=== PATIENT | male | born 1945 | race Caucasian/White ===

== ENCOUNTER 2017-01-12 15:00 | Emergency (ER) | payer OTHER ==
--- NOTE | 2017-01-12 15:24 | ED ORDER SUMMARY ---
..... Patient: BARBARA MACKAY OrderSheet [facility] VisitID: [id number] [address] [place] [address] 71y, M Registration Date/Time: 01/12/2017 ORDER SHEET Weight: 0.4 kg Allergies: GENERAL ORDERS: Chest 1V Urgent (15:18 01/12/2017 Ag Quevedo) Geriatric Social Work Professor (Continuous) (STEMI) (15:01/12/2017 Ag Quevedo) CBC w Diff Urgent (15:01/12/2017 Ag Quevedo) CMP Urgent (15:01/12/2017 Ag Quevedo) PT with INR Urgent (15:01/12/2017 Ag Quevedo) PTT Urgent (15:01/12/2017 Ag Quevedo) Pulse oximeter (15:01/12/2017 Ag Quevedo) Pacer Pads (15:01/12/2017 Ag Quevedo) Troponin-I Urgent (15:01/12/2017 Ag Quevedo) MEDICATION ORDERS: NitroGLYCERIN SL 0.4 mg (x3 PRN Chest Pain) (15:01/12/2017 Ag Quevedo) (6:51 DBeyer R.N.) IV FLUIDS: Morphine IV 2 mg (HIGH ALERT MEDICATION, NOW) (15:01/12/2017 Ag Quevedo) (6:50 DBeyer R.N.) Atropine IV 1 amp (HIGH ALERT MEDICATION, NOW) (15:01/12/2017 Ag Quevedo) (6:50 DBeyer R.N.) Heparin IV : initial bolus 60 units/kg, then none - for X1 (HIGH ALERT MEDICATION, NOW) (max 5000 u) (15:01/12/2017 Ag Quevedo) (6:50 DBeyer R.N.) IV Saline Lock (:01/12/2017 Ag Quevedo) (6:49 DBeyer R.N.) Heparin IV : initial bolus none -, then 12 units/kg/hr for X1 (HIGH ALERT MEDICATION, NOW) (max 1000 unit/hr) (15:01/12/2017 Ag Quevedo) (6:51 Justin Em) ORDER SHEET NOTES: [Electronically signed by Alcon Benz Dr. (04:56 01/16/2017)] [Electronically signed by Jaime Cohen R.N. (00:36 02/03/2017)] [Electronically locked/signed by Jaime Cohen R.N. (06:51 01/28/2017)]
--- NOTE | 2017-01-12 15:24 | ED NURSING NOTES ---
Clinical Report - Nurses [place] [address] [place] [address] 01/12/2017 15:08 Patient: BARBARA MACKAY TRIAGE Chief Complaint: CHEST PAIN. --00:34 Jaime Cohen R.N. ( vaule of 1 entered for height and weight so that pt chart could be locked). --00:35 Jaime Cohen R.N. Weight: 0.4 kg. Height/Length: 1 inches. BMI: 640. --00:35 Jaime Cohen R.N. Allergies Unknown. --00:35 Jaime Cohen R.N. NURSING PROGRESS NOTES 15:00 01/12/17. ( Pt identified as an STEMI with EKG, pt is alert and oriented, he is pale, diaphoretic RR 25. 1x nitro pt took 325 aspirin at home). --15:17 Jaime Cohen R.N. 15:00 01/12/17. BP: 117/76. HR: 55. RR: 25. O2 saturation: 100%. --15:17 Jaime Cohen R.N. 15:03. ( PT HR decreased to 30, pt given 1 mg atropine HR increased to 55). --15:20 Jaime Cohen R.N. 15:05 01/12/17. BP: 110/76. HR: 59. RR: 22. O2 saturation: 100%. --15:24 Jaime Cohen R.N. 15:05 01/12/17. ( second dose of nitro given MD at bedside). --15:24 Jaime Cohen R.N. ( 1L NS started 2nd IV placed). --15:25 Jaime Cohen R.N. 15:25 01/12/17. BP: 97/55. HR: 55. O2 saturation: 100%. --15:25 Jaime Cohen R.N. ( previous note charted in error time should be 1505). --15:26 Jaime Cohen R.N. 15:00 01/12/17. ( BETO Sandoval first contact with pt). --15:35 Jaime Cohen R.N. 15:07 01/12/17. ( 5000 units heparin admin by RN verbal order from ). --15:27 Jaime Cohen R.NCurly 15:12 01/12/17. BP: 99/61. HR: 56. RR: 22. O2 saturation: 100%. --15:29 Jaime Cohen R.N. 15:12 01/12/17. --15:29 Jaime Cohen R.NCurly 15:13 01/12/2017 Site #1 started via IV in the right with an 18g angiocath, with aseptic technique; one attempt. Blood drawn: rainbow set. Labeled in the presence of the patient. Saline lock flushed with saline. --15:38 Jaime Cohen R.N. 15:14 01/12/2017 Site #2 started via IV in the left hand with an 18g angiocath, with aseptic technique; one attempt. Blood drawn: rainbow set. Saline lock flushed. --15:39 Jaime Cohen R.N. 15:15 01/12/17. ( Heparin drip started at 1800units an hour by RN(hedis coordinator) dose calculated by pharmacist.). --15:31 Jaime Cohen R.N. 15:15 01/12/17. ( 1512 3rd dose of nitro admin). --15:04 Jaime Cohen R.N. 15:23 01/12/17. ( 2mg morphine admin by BETO patrick). --15:32 Jaime Cohen R.N. 15:27 01/12/17. ( Pt left facility via EMS). --15:32 Jaime Cohen R.N. 06:50 01/28/2017 Morphine IVP 2 mg given. via site #1. --06:50 Jaime Cohen R.NCurly 06:50 01/28/2017 Atropine IVP 1 mg given. via site #1. --06:50 Jaime Cohen R.NCurly 06:50 01/28/2017 Heparin IVP via site #1. --06:50 Jaime Cohen R.N. 06:50 01/28/2017 Heparin IVP via site #1. --06:51 Jaime Cohen R.N. 06:51 01/28/2017 Nitroglycerin SL 0.4 mg given. --06:51 Jaime Cohen R.N. DISPOSITION / DISCHARGE 15:27 01/12/17. Departure time: 1527. ( Pt transfered via ems). --15:45 Jaime Cohen R.N. 15:27 01/12/17. BP: 126/57. HR: 55. RR: 25. O2 saturation: 99%. Pain level now 08/30. --15:45 Jaime Cohen R.N. Locked/Released at 02/03/2017 0:36 by Jaime Cohen R.N.
--- NOTE | 2017-01-12 15:24 | ED ORDER SUMMARY ---
..... Patient: BARBARA MACKAY OrderSheet [facility] VisitID: [id number] [address] [place] [address] 71y, M Registration Date/Time: 01/12/2017 ORDER SHEET Weight: 0.4 kg Allergies: GENERAL ORDERS: Chest 1V Urgent (15:18 01/12/2017 Ag Quevedo) Ssis Architect (Continuous) (STEMI) (15:01/12/2017 Ag Quevedo) CBC w Diff Urgent (15:01/12/2017 Ag Quevedo) CMP Urgent (15:01/12/2017 Ag Quevedo) PT with INR Urgent (15:01/12/2017 Ag Quevedo) PTT Urgent (15:01/12/2017 Ag Quevedo) Pulse oximeter (15:01/12/2017 Ag Quevedo) Pacer Pads (15:01/12/2017 Ag Quevedo) Troponin-I Urgent (15:01/12/2017 Ag Quevedo) MEDICATION ORDERS: NitroGLYCERIN SL 0.4 mg (x3 PRN Chest Pain) (15:01/12/2017 Ag Quevedo) (6:51 DBeyer R.N.) IV FLUIDS: Morphine IV 2 mg (HIGH ALERT MEDICATION, NOW) (15:01/12/2017 Ag Quevedo) (6:50 DBeyer R.N.) Atropine IV 1 amp (HIGH ALERT MEDICATION, NOW) (15:01/12/2017 Ag Quevedo) (6:50 DBeyer R.N.) Heparin IV : initial bolus 60 units/kg, then none - for X1 (HIGH ALERT MEDICATION, NOW) (max 5000 u) (15:01/12/2017 Ag Quevedo) (6:50 DBeyer R.N.) IV Saline Lock (:01/12/2017 Ag Quevedo) (6:49 DBeyer R.N.) Heparin IV : initial bolus none -, then 12 units/kg/hr for X1 (HIGH ALERT MEDICATION, NOW) (max 1000 unit/hr) (15:01/12/2017 Ag Quevedo) (6:51 Justin Em) ORDER SHEET NOTES: [Electronically signed by Alcon Benz Dr. (04:56 01/16/2017)] [Electronically signed by Jaime Cohen R.N. (00:36 02/03/2017)] [Electronically locked/signed by Jaime Cohen R.N. (06:51 01/28/2017)]
--- NOTE | 2017-01-12 15:24 | ED NURSING NOTES ---
Clinical Report - Nurses [place] [address] [place] [address] 01/12/2017 15:08 Patient: BARBARA MACKAY TRIAGE Chief Complaint: CHEST PAIN. --00:34 Jaime Cohen R.N. ( vaule of 1 entered for height and weight so that pt chart could be locked). --00:35 Jaime Cohen R.N. Weight: 0.4 kg. Height/Length: 1 inches. BMI: 640. --00:35 Jaime Cohen R.N. Allergies Unknown. --00:35 Jaime Cohen R.N. NURSING PROGRESS NOTES 15:00 01/12/17. ( Pt identified as an STEMI with EKG, pt is alert and oriented, he is pale, diaphoretic RR 25. 1x nitro pt took 325 aspirin at home). --15:17 Jaime Cohen R.N. 15:00 01/12/17. BP: 117/76. HR: 55. RR: 25. O2 saturation: 100%. --15:17 Jaime Cohen R.N. 15:03. ( PT HR decreased to 30, pt given 1 mg atropine HR increased to 55). --15:20 Jaime Cohen R.N. 15:05 01/12/17. BP: 110/76. HR: 59. RR: 22. O2 saturation: 100%. --15:24 Jaime Cohen R.N. 15:05 01/12/17. ( second dose of nitro given MD at bedside). --15:24 Jaime Cohen R.N. ( 1L NS started 2nd IV placed). --15:25 Jaime Cohen R.N. 15:25 01/12/17. BP: 97/55. HR: 55. O2 saturation: 100%. --15:25 Jaime Cohen R.N. ( previous note charted in error time should be 1505). --15:26 Jaime Cohen R.N. 15:00 01/12/17. ( BETO Sandoval first contact with pt). --15:35 Jaime Cohen R.N. 15:07 01/12/17. ( 5000 units heparin admin by RN verbal order from ). --15:27 Jaime Cohen R.NCurly 15:12 01/12/17. BP: 99/61. HR: 56. RR: 22. O2 saturation: 100%. --15:29 Jaime Cohen R.N. 15:12 01/12/17. --15:29 Jaime Cohen R.NCurly 15:13 01/12/2017 Site #1 started via IV in the right with an 18g angiocath, with aseptic technique; one attempt. Blood drawn: rainbow set. Labeled in the presence of the patient. Saline lock flushed with saline. --15:38 Jaime Cohen R.N. 15:14 01/12/2017 Site #2 started via IV in the left hand with an 18g angiocath, with aseptic technique; one attempt. Blood drawn: rainbow set. Saline lock flushed. --15:39 Jaime Cohen R.N. 15:15 01/12/17. ( Heparin drip started at 1800units an hour by RN(dental treatment coordinator) dose calculated by pharmacist.). --15:31 Jaime Cohen R.N. 15:15 01/12/17. ( 1512 3rd dose of nitro admin). --15:04 Jaime Cohen R.N. 15:23 01/12/17. ( 2mg morphine admin by BETO patrick). --15:32 Jaime Cohen R.N. 15:27 01/12/17. ( Pt left facility via EMS). --15:32 Jaime Choen R.N. 06:50 01/28/2017 Morphine IVP 2 mg given. via site #1. --06:50 Jaime Cohen R.NCurly 06:50 01/28/2017 Atropine IVP 1 mg given. via site #1. --06:50 Jaime Cohen R.NCurly 06:50 01/28/2017 Heparin IVP via site #1. --06:50 Jaime Cohen R.N. 06:50 01/28/2017 Heparin IVP via site #1. --06:51 Jaime Cohen R.N. 06:51 01/28/2017 Nitroglycerin SL 0.4 mg given. --06:51 Jaime Cohen R.N. DISPOSITION / DISCHARGE 15:27 01/12/17. Departure time: 1527. ( Pt transfered via ems). --15:45 Jaime Cohen R.N. 15:27 01/12/17. BP: 126/57. HR: 55. RR: 25. O2 saturation: 99%. Pain level now 08/30. --15:45 Jaime Cohen R.N. Locked/Released at 02/03/2017 0:36 by Jaime Cohen R.N.
--- NOTE | 2017-02-03 00:36 | ED CLINICAL REPORT ---
Clinical Report - Physicians/Mid Levels [facility] [address] [place] [address] 01/12/2017 15:08 Patient: BARBARA MACKAY Time Seen: 1505. Arrived- By private vehicle. Historian- patient. HISTORY OF PRESENT ILLNESS Chief Complaint: CHEST PAIN. At its maximum, severity described as severe. Modifying factors- (does not know what makes it better or worse). This started today and is still present and worsening. It was abrupt in onset and has been constant but is not gone now. Onset during shoveling manure. It is described as located in the central chest area. No radiation. No nausea or vomiting. He has had difficulty breathing and has experienced diaphoresis. No additional chest pain. (reports no known cardiac history. states that he has not had any bleeding history except occasional epistaxis. reports no hx of GI bleeding. Takes a daily aspirin 325 mg. Took it today around noon). Similar symptoms previously: None. Recent medical care: Not recently seen/assessed. REVIEW OF SYSTEMS No fever, chills, pedal edema or abdominal pain. He has had skin rash. All systems otherwise negative, except as recorded above. PAST HISTORY See nurses notes. SOCIAL HISTORY Never smoker. No alcohol use or drug use. No recent travel. Is a local resident. FAMILY HISTORY Negative. ADDITIONAL NOTES The nursing notes have been reviewed. PHYSICAL EXAM Vital Signs: 01/12/2017 15:00 BP: 117/76. HR: 55. RR: 25. O2 saturation: 100%. Blood pressure normal. Oxygen saturation normal. Appearance: Alert. Oriented X3. Patient in severe distress. (obviously ill.). Eyes: Pupils equal, round and reactive to light. Eyes normal inspection. ENT: Ears normal. Nose normal. Pharynx normal. Neck: Normal inspection. Neck supple. CVS: Normal heart rate and rhythm. Heart sounds normal. Pulses normal. Respiratory: No respiratory distress. Breath sounds normal. Chest nontender. No rales, rhonchi or wheezes. Abdomen: Soft and nontender. Bowel sounds normal. Back: Normal external inspection. Skin: No rash. Pallor. Cool skin. Diaphoresis. Extremities: Extremities exhibit normal ROM. No calf tenderness. No lower extremity edema. LABS, X-RAYS, AND EKG EKG: Narrow-complex bradycardia. Sinus bradycardia. Normal P waves. Normal DAMON. Normal QRS complex. Normal axis. ST elevation in lead II, III, aVF, V5 and V6- consistent with inferior and lateral infarction. Marked ST depression in lead I, aVR, aVL, V1 and V2- consistent with ischemia. QT not prolonged. QTc not prolonged. STEMI. The study has been interpreted contemporaneously by me. The study has been independently viewed by me. The EKG appears to be a good tracing. Laboratory Tests: CBC w Diff: (SADIQ: 01/12/2017 15:19) ( MsgRcvd 01/12/2017 15:27) Final results Test Result Flag Units (Reference) WHITE BLOOD COUNT 7.3 K/uL (4.5-11.5) RED BLOOD COUNT 5.17 M/uL (4.50-5.90) HEMOGLOBIN 15.7 gm/dL (13.5-17.5) HEMATOCRIT 46.9 % (41.0-53.0) MEAN CELL VOLUME 91 fL (80-100) MEAN CORPUSCULAR HGB 30 pg (26-34) MEAN CORPUSCULAR HGB CONC 34 g/dL (31-37) RED CELL DISTRIBUTION WIDTH 14.5 % (11.6-14.8) PLATELET COUNT 306 K/uL (150-400) NEUTROPHIL % 49.7 L % (50-75) LYMPH % 34.5 % (25-40) MONO % 8.4 % (3-14) EOSINOPHIL % 6.3 H % (0-4) BASOPHIL % 1.1 % (0-2) PT with INR: (SADIQ: 01/12/2017 15:00) ( MsgRcvd 01/12/2017 15:49) Final results Test Result Flag Units (Reference) INR 1.0 (0.8-1.2) Low Intensity Therapy: INR 1.5-2.0 PT range 18.5-23.1Mod.Intensity Therapy: INR 2.0-3.0 PT range 23.1-31.5High Intensity Therapy: INR 2.5-3.5 PT range 27.4-35.5High Intensity Therapy 2: INR 3.0-4.0 PT range 31.5-39.3 APTT 31 SECONDS (24-34) Troponin-I: (SADIQ: 01/12/2017 15:00) ( MsgRcvd 01/12/2017 16:09) Final results Test Result Flag Units (Reference) TROPONIN I <0.05 L ng/mL (0.00-1.5) TROPONIN REFERENCE RANGE:<0.1 NEGATIVE0.1-1.5 INDETERMINANT>1.5 POSITIVE CMP: (SADIQ: 01/12/2017 15:19) ( DegRcvd 01/12/2017 15:36) Final results Test Result Flag Units (Reference) GLUCOSE 125 H mg/dL (70-110) BUN 13 mg/dL (7-18) CREATININE 1.1 mg/dL (0.6-1.3) Estimated GFR >60 mL/min Estimated GFR- >60 mL/min Note: Persistent reduction over 3 months in eGFR<60 mL/min/1.73 m2 defines CKD. Patients with eGFR values>=60 mL/min/1.73 m2 may also have CKD if evidence ofpersistent proteinuria. Additional information may be foundat www.kidney.org. SODIUM 141 mmol/L (136-145) POTASSIUM 4.0 mmol/L (3.5-5.1) CHLORIDE 103 mmol/L (98-107) CARBON DIOXIDE 28 mmol/L (21-32) CALCIUM 9.0 mg/dL (8.5-10.1) TOTAL PROTEIN 7.7 g/dL (6.4-8.2) ALBUMIN 3.8 g/dL (3.3-5.0) BILIRUBIN, TOTAL 0.4 mg/dL (0.0-1.0) ALKALINE PHOSPHATASE 90 U/L (46-116) AST (SGOT) 18 U/L (15-37) ALT (SGPT) 33 U/L (12-78) . PROGRESS AND PROCEDURES Course of Care: the patient is a pleasant 71-year-old male presenting for chest pain. patient obviously ill. patient brought to the critical care room. EKG obtained immediately. Concern for STEMI. Code STEMI called. Informed patient of concern. Patient agreeable to the treatment and plan. Immediately contacted cardiology, transport, and transfer service. Patient reports no hx of GI bleeding. Discussed with patient risk and benefit of heparin. Patient agreeable to medications. Heparin started per protocol. Patient already took 325 mg ASA. Spoke with cardiology recommended patient to be transferred. Transport avaiable, spoke with [facility] since they were the cardiology group senior process control tech. patient to be transferred. Labs ordered. Lungs clear. DO not feel chest xray at our facility would record changer tester especially since patient would need to be transferred. Time considerations also for door to balloon taken into consideration. Patient was transferred ER to ER. Patient to be taken to laboratory development technician. Spoke with ED doc about transfer. Lab results were obtained and returned after patient was disposition from the ER. Critical care performed (30 minutes). Time is exclusive of separately billable procedures. Time includes: direct patient care, patient reassessment, coordination of patient care, interpretation of data (laboratory data and pulse oximetry), review of patient's medical records, medical consultation and documentation of patient care. Disposition: Benefits, risks and alternatives to transfer explained to patient. Transferred to [facility]. Summary of care provided to EMS via paper. CLINICAL IMPRESSION STEMI inferior lateral acute. (Electronically signed by Alcon Benz Dr. 01/16/2017 4:56) Royer MACKAYBARBARA VisitID: [id number] Date: 01/12/2017 01/28/2017 6:52 for accurate medication admin times please see progress notes. medication checked off in cpoe for billing purposes and does not reflect actual time that meds were given please see progress notes for acurate times (Electronically signed by Jaime Cohen R.N. 01/28/2017 6:52)
--- NOTE | 2017-02-03 00:36 | ED CLINICAL REPORT ---
Clinical Report - Physicians/Mid Levels [facility] [address] [place] [address] 01/12/2017 15:08 Patient: BARBARA MACKAY Time Seen: 1505. Arrived- By private vehicle. Historian- patient. HISTORY OF PRESENT ILLNESS Chief Complaint: CHEST PAIN. At its maximum, severity described as severe. Modifying factors- (does not know what makes it better or worse). This started today and is still present and worsening. It was abrupt in onset and has been constant but is not gone now. Onset during shoveling manure. It is described as located in the central chest area. No radiation. No nausea or vomiting. He has had difficulty breathing and has experienced diaphoresis. No additional chest pain. (reports no known cardiac history. states that he has not had any bleeding history except occasional epistaxis. reports no hx of GI bleeding. Takes a daily aspirin 325 mg. Took it today around noon). Similar symptoms previously: None. Recent medical care: Not recently seen/assessed. REVIEW OF SYSTEMS No fever, chills, pedal edema or abdominal pain. He has had skin rash. All systems otherwise negative, except as recorded above. PAST HISTORY See nurses notes. SOCIAL HISTORY Never smoker. No alcohol use or drug use. No recent travel. Is a local resident. FAMILY HISTORY Negative. ADDITIONAL NOTES The nursing notes have been reviewed. PHYSICAL EXAM Vital Signs: 01/12/2017 15:00 BP: 117/76. HR: 55. RR: 25. O2 saturation: 100%. Blood pressure normal. Oxygen saturation normal. Appearance: Alert. Oriented X3. Patient in severe distress. (obviously ill.). Eyes: Pupils equal, round and reactive to light. Eyes normal inspection. ENT: Ears normal. Nose normal. Pharynx normal. Neck: Normal inspection. Neck supple. CVS: Normal heart rate and rhythm. Heart sounds normal. Pulses normal. Respiratory: No respiratory distress. Breath sounds normal. Chest nontender. No rales, rhonchi or wheezes. Abdomen: Soft and nontender. Bowel sounds normal. Back: Normal external inspection. Skin: No rash. Pallor. Cool skin. Diaphoresis. Extremities: Extremities exhibit normal ROM. No calf tenderness. No lower extremity edema. LABS, X-RAYS, AND EKG EKG: Narrow-complex bradycardia. Sinus bradycardia. Normal P waves. Normal DAMON. Normal QRS complex. Normal axis. ST elevation in lead II, III, aVF, V5 and V6- consistent with inferior and lateral infarction. Marked ST depression in lead I, aVR, aVL, V1 and V2- consistent with ischemia. QT not prolonged. QTc not prolonged. STEMI. The study has been interpreted contemporaneously by me. The study has been independently viewed by me. The EKG appears to be a good tracing. Laboratory Tests: CBC w Diff: (SADIQ: 01/12/2017 15:19) ( MsgRcvd 01/12/2017 15:27) Final results Test Result Flag Units (Reference) WHITE BLOOD COUNT 7.3 K/uL (4.5-11.5) RED BLOOD COUNT 5.17 M/uL (4.50-5.90) HEMOGLOBIN 15.7 gm/dL (13.5-17.5) HEMATOCRIT 46.9 % (41.0-53.0) MEAN CELL VOLUME 91 fL (80-100) MEAN CORPUSCULAR HGB 30 pg (26-34) MEAN CORPUSCULAR HGB CONC 34 g/dL (31-37) RED CELL DISTRIBUTION WIDTH 14.5 % (11.6-14.8) PLATELET COUNT 306 K/uL (150-400) NEUTROPHIL % 49.7 L % (50-75) LYMPH % 34.5 % (25-40) MONO % 8.4 % (3-14) EOSINOPHIL % 6.3 H % (0-4) BASOPHIL % 1.1 % (0-2) PT with INR: (SADIQ: 01/12/2017 15:00) ( MsgRcvd 01/12/2017 15:49) Final results Test Result Flag Units (Reference) INR 1.0 (0.8-1.2) Low Intensity Therapy: INR 1.5-2.0 PT range 18.5-23.1Mod.Intensity Therapy: INR 2.0-3.0 PT range 23.1-31.5High Intensity Therapy: INR 2.5-3.5 PT range 27.4-35.5High Intensity Therapy 2: INR 3.0-4.0 PT range 31.5-39.3 APTT 31 SECONDS (24-34) Troponin-I: (SADIQ: 01/12/2017 15:00) ( MsgRcvd 01/12/2017 16:09) Final results Test Result Flag Units (Reference) TROPONIN I <0.05 L ng/mL (0.00-1.5) TROPONIN REFERENCE RANGE:<0.1 NEGATIVE0.1-1.5 INDETERMINANT>1.5 POSITIVE CMP: (SADIQ: 01/12/2017 15:19) ( NygRcvd 01/12/2017 15:36) Final results Test Result Flag Units (Reference) GLUCOSE 125 H mg/dL (70-110) BUN 13 mg/dL (7-18) CREATININE 1.1 mg/dL (0.6-1.3) Estimated GFR >60 mL/min Estimated GFR- >60 mL/min Note: Persistent reduction over 3 months in eGFR<60 mL/min/1.73 m2 defines CKD. Patients with eGFR values>=60 mL/min/1.73 m2 may also have CKD if evidence ofpersistent proteinuria. Additional information may be foundat www.kidney.org. SODIUM 141 mmol/L (136-145) POTASSIUM 4.0 mmol/L (3.5-5.1) CHLORIDE 103 mmol/L (98-107) CARBON DIOXIDE 28 mmol/L (21-32) CALCIUM 9.0 mg/dL (8.5-10.1) TOTAL PROTEIN 7.7 g/dL (6.4-8.2) ALBUMIN 3.8 g/dL (3.3-5.0) BILIRUBIN, TOTAL 0.4 mg/dL (0.0-1.0) ALKALINE PHOSPHATASE 90 U/L (46-116) AST (SGOT) 18 U/L (15-37) ALT (SGPT) 33 U/L (12-78) . PROGRESS AND PROCEDURES Course of Care: the patient is a pleasant 71-year-old male presenting for chest pain. patient obviously ill. patient brought to the critical care room. EKG obtained immediately. Concern for STEMI. Code STEMI called. Informed patient of concern. Patient agreeable to the treatment and plan. Immediately contacted cardiology, transport, and transfer service. Patient reports no hx of GI bleeding. Discussed with patient risk and benefit of heparin. Patient agreeable to medications. Heparin started per protocol. Patient already took 325 mg ASA. Spoke with cardiology recommended patient to be transferred. Transport avaiable, spoke with [facility] since they were the cardiology group events solutions consultant. patient to be transferred. Labs ordered. Lungs clear. DO not feel chest xray at our facility would chemical cell changer especially since patient would need to be transferred. Time considerations also for door to balloon taken into consideration. Patient was transferred ER to ER. Patient to be taken to lab associate. Spoke with ED doc about transfer. Lab results were obtained and returned after patient was disposition from the ER. Critical care performed (30 minutes). Time is exclusive of separately billable procedures. Time includes: direct patient care, patient reassessment, coordination of patient care, interpretation of data (laboratory data and pulse oximetry), review of patient's medical records, medical consultation and documentation of patient care. Disposition: Benefits, risks and alternatives to transfer explained to patient. Transferred to [facility]. Summary of care provided to EMS via paper. CLINICAL IMPRESSION STEMI inferior lateral acute. (Electronically signed by Alcon Benz Dr. 01/16/2017 4:56) Royer MACKAYBARBARA VisitID: [id number] Date: 01/12/2017 01/28/2017 6:52 for accurate medication admin times please see progress notes. medication checked off in cpoe for billing purposes and does not reflect actual time that meds were given please see progress notes for acurate times (Electronically signed by Jaime Cohen R.N. 01/28/2017 6:52)
--- NOTE | 2017-02-03 00:36 | ED MAR SUMMARY ---
..... Medication Administration Record [facility] [address] [place] [address] Patient: BARBARA MACKAY Visit ID: [id number] 71y, M Weight: 0.4 kg Height/Length: 1 in BMI: 640 ALLERGIES: Unknown Given 06:50 01/28/2017 Jaime Cohen R.N. Medication Administered: MORPHINE [IVP], Dose: 2 mg IVP, Site: #1 right. Medication Ordered: Morphine IV 2 mg (HIGH ALERT MEDICATION, NOW). Given 06:50 01/28/2017 Jaime Cohen R.N. Medication Administered: ATROPINE [IVP], Dose: 1 mg IVP, Site: #1 right. Medication Ordered: Atropine IV 1 amp (HIGH ALERT MEDICATION, NOW). Given 06:50 01/28/2017 Jaime Cohen R.N. Medication Administered: HEPARIN [IVP], Dose: IVP, Site: #1 right. Medication Ordered: Heparin IV : initial bolus 60 units/kg, then none - for X1 (HIGH ALERT MEDICATION, NOW) (max 5000 u). Given 06:50 01/28/2017 Jaime Cohen R.N. Medication Administered: HEPARIN [IVP], Dose: IVP, Site: #1 right. Medication Ordered: Heparin IV : initial bolus none -, then 12 units/kg/hr for X1 (HIGH ALERT MEDICATION, NOW) (max 1000 unit/hr). Given 06:51 01/28/2017 Jaime Cohen R.N. Medication Administered: NITROGLYCERIN [SL], Dose: 0.4 mg SL. Medication Ordered: NitroGLYCERIN SL 0.4 mg (x3 PRN Chest Pain).
--- NOTE | 2017-02-03 00:36 | ED MAR SUMMARY ---
..... Medication Administration Record [facility] [address] [place] [address] Patient: BARBARA MACKAY Visit ID: [id number] 71y, M Weight: 0.4 kg Height/Length: 1 in BMI: 640 ALLERGIES: Unknown Given 06:50 01/28/2017 Jaime Cohen R.N. Medication Administered: MORPHINE [IVP], Dose: 2 mg IVP, Site: #1 right. Medication Ordered: Morphine IV 2 mg (HIGH ALERT MEDICATION, NOW). Given 06:50 01/28/2017 Jaime Cohen R.N. Medication Administered: ATROPINE [IVP], Dose: 1 mg IVP, Site: #1 right. Medication Ordered: Atropine IV 1 amp (HIGH ALERT MEDICATION, NOW). Given 06:50 01/28/2017 Jaime Cohen R.N. Medication Administered: HEPARIN [IVP], Dose: IVP, Site: #1 right. Medication Ordered: Heparin IV : initial bolus 60 units/kg, then none - for X1 (HIGH ALERT MEDICATION, NOW) (max 5000 u). Given 06:50 01/28/2017 Jaime Cohen R.N. Medication Administered: HEPARIN [IVP], Dose: IVP, Site: #1 right. Medication Ordered: Heparin IV : initial bolus none -, then 12 units/kg/hr for X1 (HIGH ALERT MEDICATION, NOW) (max 1000 unit/hr). Given 06:51 01/28/2017 Jaime Cohen R.N. Medication Administered: NITROGLYCERIN [SL], Dose: 0.4 mg SL. Medication Ordered: NitroGLYCERIN SL 0.4 mg (x3 PRN Chest Pain).
--- NOTE | 2017-02-03 00:36 | ED MED RECONCILIATION SUMMARY ---
Patient: BARBARA MACKAY Medication Reconciliation Report [facility] VisitID: [id number] [address] [place] [address] 71y, M Registration Date/Time: 01/12/2017 Weight: 0.4 kg Height/Length: 1 in. BMI: 640.0 ALLERGIES: Unknown The patient's Home Medications are listed below: Not obtained. The source(s) of the original Home Medication information: Not obtained. The following Medications were given to the patient in the Emergency Department: Morphine [IVP] IVP 2 mg, administered: 01/28/2017 6:50:00 AM Atropine [IVP] IVP 1 mg, administered: 01/28/2017 6:50:00 AM Heparin [IVP] IVP, administered: 01/28/2017 6:50:00 AM Heparin [IVP] IVP, administered: 01/28/2017 6:50:00 AM Nitroglycerin [SL] SL 0.4 mg, administered: 01/28/2017 6:51:00 AM The following Medications were prescribed to the patient: None.
--- NOTE | 2017-02-03 00:36 | ED MED RECONCILIATION SUMMARY ---
Patient: BARBARA MACKAY Medication Reconciliation Report [facility] VisitID: [id number] [address] [place] [address] 71y, M Registration Date/Time: 01/12/2017 Weight: 0.4 kg Height/Length: 1 in. BMI: 640.0 ALLERGIES: Unknown The patient's Home Medications are listed below: Not obtained. The source(s) of the original Home Medication information: Not obtained. The following Medications were given to the patient in the Emergency Department: Morphine [IVP] IVP 2 mg, administered: 01/28/2017 6:50:00 AM Atropine [IVP] IVP 1 mg, administered: 01/28/2017 6:50:00 AM Heparin [IVP] IVP, administered: 01/28/2017 6:50:00 AM Heparin [IVP] IVP, administered: 01/28/2017 6:50:00 AM Nitroglycerin [SL] SL 0.4 mg, administered: 01/28/2017 6:51:00 AM The following Medications were prescribed to the patient: None.
--- NOTE | 2017-02-03 00:36 | ED DISCHARGE INSTRUCTIONS ---
Patient: BARBARA MACKAY General Instructions [facility] VisitID: [id number] [address] [place] [address] 71y, M Registration Date/Time: 01/12/2017 STEMI inferior lateral acute. (Electronically signed by Alcon Benz Dr. 01/16/2017 4:56)
--- NOTE | 2017-02-03 00:36 | ED DISCHARGE INSTRUCTIONS ---
Patient: BARBARA MACKAY General Instructions [facility] VisitID: [id number] [address] [place] [address] 71y, M Registration Date/Time: 01/12/2017 STEMI inferior lateral acute. (Electronically signed by Alcon Benz Dr. 01/16/2017 4:56)
== END 2017-01-12 15:27 | disposition short-term general hospital (02) ==
LOC: ED SRH 15:00
DX: I21.19 ST elevation (STEMI) myocardial infarction involving other coronary artery of inferior wall (principal)
CPT/HCPCS: 83483; 90074; 90100; 90616; 94001; 94060; 95059